=== PATIENT | male | born 1985 | race Caucasian/White ===

== ENCOUNTER 2016-06-28 15:44 | Emergency (ER) | payer OTHER ==
[2016-06-28 16:02] VITALS: RESP 16
[2016-06-28 16:42] LABS: RBC URINE 1 /hpf (0-3); URINE BACTERIA RARE (<OCC); URINE BILIRUBIN NEGATIVE (NEGATIVE); URINE BLOOD NEGATIVE (NEGATIVE); URINE COLOR Yellow (YELLOW); URINE GLUCOSE (UA) NORMAL (Normal); URINE KETONE TRACE mg/dL (NEGATIVE); URINE LEUKOCYTE ESTERASE NEG Leu/uL (Negative); URINE PROTEIN NEGATIVE (NEGATIVE); URINE UROBILINOGEN NORMAL mg/dL (0.2-1.0); WBC URINE 1 /hpf (0-5)
[2016-06-28] MEDS ORDERED: Lidocaine 5% Patch TD STA (17:15)
--- NOTE | 2016-06-28 17:15 | C.PDOC ---
Time Seen by Provider: 06/28/16 16:15 Chief Complaint (Nursing): Back Pain Past Medical History Vital Signs: Last Vital Signs Temp 98.7 F 06/28/16 16:02 Pulse 98 H 06/28/16 16:02 Resp 16 06/28/16 16:02 BP 137/90 06/28/16 16:02 Pulse Ox 97 06/28/16 16:02 - Medical History PMH: Anxiety, HTN, Hypercholesterolemia Family History: States: Unknown Family Hx - Social History Hx Alcohol Use: Yes Hx Substance Use: No - Immunization History Hx Tetanus Toxoid Vaccination: No Hx Influenza Vaccination: Yes (2014) Hx Pneumococcal Vaccination: No ED Course And Treatment O2 Sat by Pulse Oximetry: 97
--- NOTE | 2016-06-28 17:18 | C.PDOC ---
History Of Present Illness NEW ONSET L LOWER BACK PAIN SINCE YEST. ONSET AFTER LIFTING ARMS OVERHEAD. PAIN WORSE AFTER PROLONGED SITTING. LOCALIZED. WORSE W PALPATION. NO PAIN MEDS TRIED. PS HAS BEEN TAKING UNK ABX "ON AND OFF" FOR PREV DX UTI. NO FEVER, UTI SX EXAM NAD BACK NO CVAT. AROM WO DIFF. +SPASM L LOWER BACK W REPRODUC PAIN. ATRAUM NEURO INTACT Time Seen by Provider: 06/28/16 16:15 Chief Complaint (Nursing): Back Pain History Per: Patient History/Exam Limitations: no limitations Onset/Duration Of Symptoms: Days Current Symptoms Are (Timing): Still Present Past Medical History Reviewed: Historical Data, Nursing Documentation, Vital Signs Vital Signs: Last Vital Signs Temp 97.8 F 06/28/16 17:54 Pulse 79 06/28/16 17:54 Resp 16 06/28/16 17:54 BP 150/90 06/28/16 17:54 Pulse Ox 99 06/28/16 17:54 - Medical History PMH: Anxiety, HTN, Hypercholesterolemia Family History: States: Unknown Family Hx - Social History Hx Alcohol Use: Yes Hx Substance Use: No - Immunization History Hx Tetanus Toxoid Vaccination: No Hx Influenza Vaccination: Yes (2014) Hx Pneumococcal Vaccination: No Review Of Systems Except As Marked, All Systems Reviewed And Found Negative. Constitutional: Negative for: Fever Cardiovascular: Negative for: Chest Pain Respiratory: Negative for: Shortness of Breath Gastrointestinal: Negative for: Vomiting Musculoskeletal: Positive for: Back Pain Neurological: Negative for: Weakness, Numbness Physical Exam - Physical Exam Nose: Normal Oral Mucosa: Moist Lips: Normal Appearing Neck: Normal ROM Respiratory: No Accessory Muscle Use Back: Other (BACK NO CVAT. AROM WO DIFF. +SPASM L LOWER BACK W REPRODUC PAIN. ATRAUM) Extremity: Normal ROM Neurological/Psych: Oriented x3 ED Course And Treatment O2 Sat by Pulse Oximetry: 97 Disposition Counseled Patient/Family Regarding: Diagnosis, Need For Followup, Rx Given - Disposition Referrals: YOUR,PMD [Other] Disposition: HOME/ ROUTINE Disposition Time: 17:17 Condition: IMPROVED Prescriptions: Cyclobenzaprine [Flexeril] 10 mg PO TID #15 tab Ibuprofen [Motrin] 600 mg PO Q6 #30 tab Lidocaine 5% [Lidoderm] 1 ea TD PRN PRN #10 patch PRN Reason: Pain, Moderate (4-7) Instructions: Acute Low Back Pain (ED) - Clinical Impression Clinical Impression: Low back pain - Scribe Statement The provider has reviewed the documentation as recorded by the Meganibrafael Zhong All medical record entries made by the Meganibrafael were at my direction and personally dictated by me. I have reviewed the chart and agree that the record accurately reflects my personal performance of the history, physical exam, medical decision making, and the department course for this patient. I have also personally directed, reviewed, and agree with the discharge instructions and disposition.
[2016-06-28] MEDS ORDERED: Lidocaine 5% Patch TD ONE (17:26)
[2016-06-28 17:55] VITALS: BP 150/90; PULSE 79; TEMP 97.8
[2016-06-28 18:17] VITALS: O2SAT 97
== END 2016-06-28 17:55 | disposition home or self-care (01) ==
LOC: C.ER 15:44
DX: M54.5 Low back pain (principal)